=== PATIENT | female | born 1990 | race Caucasian/White ===

== ENCOUNTER 2021-05-18 05:24 | Outpatient (CLI) | payer OTHER ==
[~2021-05-18] VITALS: Ht 170.2 cm; Wt 88.6 kg
[2021-05-18 06:10] VITALS: BP 126/69
[2021-05-18] MEDS ORDERED: PREN1TAB60 PO (07:35)
== END 2021-05-18 07:45 | disposition home or self-care (01) ==
LOC: LDOP 05:24
PROVIDERS: ATTEND Obstetrics & Gynecology
DX: O26.893 Other specified pregnancy related conditions, third trimester (principal); R10.9 Unspecified abdominal pain; Z3A.37 37 weeks gestation of pregnancy
CPT/HCPCS: 59025

== ENCOUNTER 2021-05-18 15:25 | Outpatient (CLI) | payer OTHER ==
[~2021-05-18] VITALS: Ht 170.2 cm; Wt 88.6 kg
[~2021-05-18 15:25] MED LIST: PREN1TAB60 PO
[2021-05-18 15:59] VITALS: BP 131/80
== END 2021-05-18 16:38 | disposition home or self-care (01) ==
LOC: LDOP 15:25
PROVIDERS: ATTEND Obstetrics & Gynecology
DX: O46.93 Antepartum hemorrhage, unspecified, third trimester (principal); Z3A.37 37 weeks gestation of pregnancy
CPT/HCPCS: 59025

== ENCOUNTER 2021-05-25 05:49 | Inpatient (IN) | payer OTHER ==
[~2021-05-25] VITALS: Ht 170.2 cm; Wt 88.6 kg
[2021-05-25 07:10] VITALS: BP 128/80
[2021-05-25] MEDS ORDERED: TERBUTALINE 1 MG/ML, 1ML SQ PRN (08:30)
[2021-05-25] MEDS ORDERED: FENTANYL PF 100 MCG/2ML IV PRN (08:30)
[2021-05-25] MEDS ORDERED: FENTANYL PF 100 MCG/2ML IVPush PRN (08:30)
[2021-05-25] MEDS ORDERED: LACTATED RINGERS 1,000 ML IV SCH ×2 (08:30→09:00)
[2021-05-25] MEDS ORDERED: TERBUTALINE 1 MG/ML, 1ML IVPush PRN (08:30)
[2021-05-25] MEDS ORDERED: OXYTOCIN 30U/ 0.9% NaCL 500ML 500 ML IV ONE (08:30)
[2021-05-25] MEDS ORDERED: NEWBORN KIT ONE (08:39)
[2021-05-25] MEDS ORDERED: BUPIVACAINE 0.25% ONE (08:55)
[2021-05-25 09:00] LABS: BASOPHILS % (AUTO) 1 % (0-1); EOSINOPHILS % (AUTO) 1 % (1-7); LYMPHOCYTES % (AUTO) 18 % (22-44); MEAN CORPUSCULAR HEMOGLOBIN 31.6 pg (27.0-34.8); MEAN CORPUSCULAR HGB CONC 34.5 g/dL (32.4-35.8); MEAN PLATELET VOLUME 7.7 fL (7.4-10.4); MONOCYTES % (AUTO) 7 % (2-9); NEUTROPHILS % (AUTO) 74 % (42-75); PLATELET COUNT 223 x10^3/uL (130-400); RED BLOOD COUNT 3.86 x10^6/uL (3.82-5.3); RED CELL DISTRIBUTION WIDTH 13.8 % (9.6-15.2)
[2021-05-25] MEDS ORDERED: EPHEDRINE 50 MG/ML, 1ML IVPush PRN ×2 (09:00→12:30)
[2021-05-25] MEDS ORDERED: FENTANYL/BUPIV./NS/PF 250 ML EPIDCONT SCH ×2 (09:00→12:30)
[2021-05-25] MEDS ORDERED: LACTATED RINGERS 1,000 ML IVBOLUS PRN ×2 (09:00→12:30)
[2021-05-25] MEDS: OXYTOCIN 30U/ 0.9% NaCL 500ML 500 ML IV SCH ×2 (12:15→12:36)
[2021-05-25] MEDS ORDERED: MISOPROSTOL 200 MCG TABLET PR PRN (12:30)
[2021-05-25] MEDS ORDERED: RHOGAM FROM BLOOD BANK 1 NOTE EA IM/IV ONE (12:30)
[2021-05-25] MEDS ORDERED: ACETAMINOPHEN 325 MG TABLET PO PRN ×2 (12:30)
[2021-05-25] MEDS ORDERED: DOCUSATE 100 MG CAPSULE PO PRN (12:30)
[2021-05-25] MEDS ORDERED: MAGNESIUM HYDROXIDE 8%, 30ML UDC PO PRN (12:30)
[2021-05-25] MEDS ORDERED: OXYcodone/APAP 5/325MG TABLET PO PRN (12:30)
[2021-05-25] MEDS ORDERED: SIMETHICONE 80 MG CHEW TAB PO PRN (12:30)
[2021-05-25] MEDS ORDERED: DIPH,PERTUSS(ACELL),TET VAC/PF NC IM-VACC PRN (12:30)
[2021-05-25] MEDS ORDERED: ONDANSETRON 2MG/ML, 2ML IV PRN (12:30)
[2021-05-25] MEDS: LACTATED RINGERS 1,000 ML IV SCH ×2 (12:30→16:28)
[2021-05-25] MEDS ORDERED: IBUPROFEN 600 MG TABLET ONE (12:33)
[2021-05-25] MEDS ORDERED: OXYTOCIN 30U/ 0.9% NaCL 500ML 500 ML ONE (12:33)
[2021-05-25] MEDS: IBUPROFEN 600 MG TABLET PO PRN ×2 (12:36→18:42)
[2021-05-25 15:10] VITALS: BP 127/77
[2021-05-25] MEDS: OXYcodone/APAP 5/325MG TABLET PO PRN ×2 (16:27→21:03)
[2021-05-25 20:00] VITALS: BP 136/79
[2021-05-25 21:22] LABS: BASOPHILS % (AUTO) 1 % (0-1); EOSINOPHILS % (AUTO) 1 % (1-7); LYMPHOCYTES % (AUTO) 16 % (22-44); MEAN CORPUSCULAR HEMOGLOBIN 31.3 pg (27.0-34.8); MEAN CORPUSCULAR HGB CONC 34.3 g/dL (32.4-35.8); MEAN PLATELET VOLUME 7.7 fL (7.4-10.4); MONOCYTES % (AUTO) 8 % (2-9); NEUTROPHILS % (AUTO) 74 % (42-75); PLATELET COUNT 195 x10^3/uL (130-400); RED BLOOD COUNT 3.83 x10^6/uL (3.82-5.3); RED CELL DISTRIBUTION WIDTH 13.5 % (9.6-15.2)
[2021-05-26 00:22] VITALS: BP 109/62
[2021-05-26] MEDS: IBUPROFEN 600 MG TABLET PO PRN ×3 (00:26→13:27)
[2021-05-26 04:30] VITALS: BP 133/86
[2021-05-26] MEDS: LACTATED RINGERS 1,000 ML IV SCH (04:30)
[2021-05-26] MEDS: OXYcodone/APAP 5/325MG TABLET PO PRN (04:32)
[2021-05-26 07:05] VITALS: BP 114/70
[2021-05-26] MEDS ORDERED: OXYC1TAB14 PO (07:53)
[2021-05-26] MEDS ORDERED: IBUP-1222 PO (07:53)
[2021-05-26] MEDS: OXYTOCIN 30U/ 0.9% NaCL 500ML 500 ML IV SCH (08:30)
[2021-05-26] MEDS ORDERED: PRENATAL VIT/IRON/FA 1 EACH TABLET PO SCH (09:00)
== END 2021-05-26 15:00 | disposition home or self-care (01) | DRG 807 ==
LOC: LDOP 05:49 → LDIP 08:23 → 2NW 14:51
PROVIDERS: ADMIT Obstetrics & Gynecology; ATTEND Obstetrics & Gynecology
PROC: 10E0XZZ Delivery of Products of Conception, External Approach (ICD-10-PCS; principal; 2021-05-25)
PROC: 3E0R3BZ Introduction of Anesthetic Agent into Spinal Canal, Percutaneous Approach (ICD-10-PCS; 2021-05-25)
PROC: 00HU33Z Insertion of Infusion Device into Spinal Canal, Percutaneous Approach (ICD-10-PCS; 2021-05-25)
DX: O80 Encounter for full-term uncomplicated delivery (principal); Z37.0 Single live birth; Z3A.38 38 weeks gestation of pregnancy
CPT/HCPCS: 36415; 85025; 86592; 86850; 86900; 87635; 87806; 89060; G0378; G0475; J2590; J7120; Q0114